=== PATIENT | female | born 1950 | race Caucasian/White ===

== ENCOUNTER 2017-09-20 09:49 | Outpatient (CLI) | payer OTHER, MEDICAID ==
[~2017-09-20 09:49] MED LIST: ARI1 PO; FERR140T PO; GLU850 PO; HYDR25TA4 PO; INSNPH7030 SQ; INSU100V; INSU100V SUBCUT; LISI-600 PO; OMEP40CA PO; TRAM50TA92 PO; [UNRECOGNIZED DRUG - OTHER] NS
== END 2017-09-20 18:55 | disposition home or self-care (01) ==
LOC: SMI 09:49
PROVIDERS: ATTEND Orthopaedic Surgery
DX: M51.17 Intervertebral disc disorders with radiculopathy, lumbosacral region (principal); M43.16 Spondylolisthesis, lumbar region; M48.061 Spinal stenosis, lumbar region without neurogenic claudication
CPT/HCPCS: 72148